=== PATIENT | female | born 1965 | race Caucasian/White ===

== ENCOUNTER 2016-10-07 16:58 | Emergency (ER) | payer MEDICARE ==
[~2016-10-07] VITALS: Ht 157.5 cm; Wt 99.8 kg
[2016-10-07 17:00] VITALS: BP 159/75; PULSE 86; RESP 18; TEMP 98.2; O2SAT 94
--- NOTE | 2016-10-07 17:35 | NUR ---
Jayna Lim BUTT TRIMMER performing MS at triage room
[2016-10-07] MEDS ORDERED: DEXAMETHASONE SOD PHOSPHATE 10 MG/ML VIAL IM ONE (17:45)
[2016-10-07] MEDS ORDERED: KETOROLAC TROMETHAMINE 60 MG/2 ML VIAL IM ONE (17:45)
--- NOTE | 2016-10-07 17:56 | NUR ---
Patient to ER for evaluation. Report given to Joi SOLER.
--- NOTE | 2016-10-07 18:02 | NUR ---
Patient to ER C/O severe 9/10 shooting pain lower back right side. Patient states that progresively got worse for the past 2 weeks. Denies trauma/injury. States she had sciatica before. AAOx4, unlabored breathing, no signs of acute distress.
[2016-10-07 18:22] LABS: BILIRUBIN,URINE NEGATIVE (NEGATIVE); BLOOD, URINE NEGATIVE (NEGATIVE); CLARITY/URINE CLEAR (CLEAR); COLOR,URINE YELLOW (YELLOW); GLUCOSE,URINE 3+ (NEGATIVE); KETONES,URINE NEGATIVE (NEGATIVE); LEUKOCYTE ESTERASE ,URINE NEGATIVE (NEGATIVE); NITRITE, URINE NEGATIVE (NEGATIVE); PH,URINE 6.5 (5.0-8.0); PROTEIN URINE NEGATIVE (NEGATIVE); UROBILINOGEN,URINE 0.2 (0.2-1.0)
[2016-10-07 18:59] VITALS: BP 128/71; PULSE 81; RESP 18; TEMP 98.1; O2SAT 96
--- NOTE | 2016-10-07 18:59 | NUR ---
Patient given written and verbal discharge instructions and verbalizes understanding. ER HEADER BOSS Carina discussed with patient the results and treatment provided. Patient in stable condition. ID arm band removed. Rx of motrin given. Patient educated on pain management and to follow up with PMD. Pain Scale 0/10. Opportunity for questions provided and answered.
[2016-10-07 19:18] LABS: BACTERIA,URINE RARE /HPF (None Seen); RBC,URINE 0-3 /HPF (0-3); WBC,URINE 0-3 /HPF (0-3)
[2016-10-07 19:19] LABS: MUCUS,URINE None Seen /LPF (None Seen)
== END 2016-10-07 18:59 | disposition home or self-care (01) ==
LOC: SED 16:58
DX: M54.17 Radiculopathy, lumbosacral region (principal); I25.2 Old myocardial infarction; E11.9 Type 2 diabetes mellitus without complications; I10 Essential (primary) hypertension; K21.9 Gastro-esophageal reflux disease without esophagitis; Z86.19 Personal history of other infectious and parasitic diseases
CPT/HCPCS: 81000; 81025; 96372; 99284; J1100; J1885

== ENCOUNTER 2017-01-22 07:34 | Inpatient (IN) | payer MEDICARE ==
[~2017-01-22] VITALS: Ht 154.9 cm; Wt 93.0 kg
[2017-01-22 07:34] VITALS: BP_SYST 140
[2017-01-22 08:05] LABS: BASOPHILS # (AUTO) 0.1 K/uL (0.0-0.2); BASOPHILS % (AUTO) 0.6 % (0.0-2.0); EOSINOPHILS # (AUTO) 0.2 K/uL (0.0-0.4); EOSINOPHILS % (AUTO) 2.4 % (0.0-4.0); HEMATOCRIT 40.2 % (36-48); HEMOGLOBIN 13.5 g/dL (12.0-16.0); LYMPHOCYTES # (AUTO) 2.4 K/uL (1.0-5.5); MEAN CORPUSCULAR HEMOGLOBIN 30 pg (27-31); MEAN CORPUSCULAR HGB CONC 34 % (32-36); MEAN CORPUSCULAR VOLUME 89 fL (79.0-98.0); MONOCYTES # (AUTO) 0.5 K/uL (0.0-1.0); MONOCYTES % (AUTO) 6.2 % (1.7-9.3); NEUTROPHILS # (AUTO) 5.4 K/uL (1.8-7.7); NEUTROPHILS % (AUTO) 62.8 % (40.0-70.0); PLATELET COUNT (AUTO) 265 K/uL (130-430); RED BLOOD CELL COUNT(AUTO) 4.51 MIL/uL (4.2-6.2); RED CELL DISTRIBUTION WIDTH 11.5 % (9.0-15.0); WHITE BLOOD COUNT (AUTO) 8.6 K/uL (4.8-10.8)
[2017-01-22 08:15] LABS: CREATININE 0.67 mg/dL (0.55-1.30); POTASSIUM 4.3 mmol/L (3.5-5.1)
[2017-01-22 08:19] LABS: INR 0.9 (0.8-1.2); PROTHROMBIN TIME 9.6 SECS (9.5-12.5)
[2017-01-22 08:21] LABS: ALBUMIN 3.5 g/dL (3.4-4.8); TOTAL BILIRUBIN 0.4 mg/dL (0.0-1.0); TOTAL PROTEIN, SERUM 7.6 g/dL (6.4-8.3)
[2017-01-22 08:39] LABS: BILIRUBIN,URINE NEGATIVE (NEGATIVE); CLARITY/URINE SL HAZY (CLEAR); COLOR,URINE YELLOW (YELLOW); GLUCOSE,URINE 3+ (NEGATIVE); KETONES,URINE NEGATIVE (NEGATIVE); LEUKOCYTE ESTERASE ,URINE TRACE (NEGATIVE); NITRITE, URINE NEGATIVE (NEGATIVE); PH,URINE 5.5 (5.0-8.0); PROTEIN URINE NEGATIVE (NEGATIVE); UROBILINOGEN,URINE 0.2 (0.2-1.0)
[2017-01-22 08:41] LABS: BLOOD, URINE TRACE (NEGATIVE)
[2017-01-22] MEDS ORDERED: METF1000 PO (09:06)
[2017-01-22] MEDS ORDERED: LISI-600 PO (09:06)
[2017-01-22 09:10] LABS: BACTERIA,URINE MODERATE /HPF (None Seen); WBC,URINE 20-50 /HPF (0-3)
[2017-01-22] MEDS ORDERED: cefTRIAXone 1 GM in D5W 50 ML IV ONE (09:15)
[2017-01-22] MEDS ORDERED: INSULIN ASPART 100 UNITS/ML, 10 ML VIAL SUBCUT ONE (09:15)
[2017-01-22] MEDS ORDERED: ASPIRIN 81 MG TAB.CHEW PO ONE (09:30)
[2017-01-22 10:17] VITALS: BP_SYST 134
[2017-01-22 12:00] VITALS: BP_SYST 137
[2017-01-22] MEDS: INSULIN ASPART 100 UNITS/ML, 10 ML VIAL (NovoLOG) SUBCUT PRN ×3 (12:10→20:42)
[2017-01-22 16:00] VITALS: BP_SYST 134
[2017-01-22] MEDS ORDERED: ACETAMINOPHEN 325 MG TABLET ONE (16:55)
[2017-01-22] MEDS: metFORMIN HCL 500 MG TABLET PO SCH (17:09)
[2017-01-22 19:50] VITALS: BP_SYST 129
[2017-01-22] MEDS: ACETAMINOPHEN 325 MG TABLET PO PRN (20:39)
[2017-01-22] MEDS: ACYCLOVIR 400 MG TABLET PO SCH (21:47)
[2017-01-22] MEDS ORDERED: ACYCLOVIR 400 MG TABLET PO SCH (22:00)
[2017-01-23] VITALS: BP_SYST 140
[2017-01-23 04:00] VITALS: BP_SYST 122
[2017-01-23] MEDS: INSULIN ASPART 100 UNITS/ML, 10 ML VIAL (NovoLOG) SUBCUT PRN (06:13)
[2017-01-23] MEDS: ACYCLOVIR 400 MG TABLET PO SCH (06:13)
[2017-01-23] MEDS: ACETAMINOPHEN 325 MG TABLET PO PRN (06:16)
[2017-01-23 07:17] LABS: BASOPHILS % (AUTO) 0.6 % (0.0-2.0); EOSINOPHILS # (AUTO) 0.2 K/uL (0.0-0.4); EOSINOPHILS % (AUTO) 2.7 % (0.0-4.0); HEMATOCRIT 39.4 % (36-48); HEMOGLOBIN 13.3 g/dL (12.0-16.0); LYMPHOCYTES # (AUTO) 2.6 K/uL (1.0-5.5); LYMPHOCYTES % (AUTO) 34.7 % (20.5-51.5); MEAN CORPUSCULAR HEMOGLOBIN 31 pg (27-31); MEAN CORPUSCULAR HGB CONC 34 % (32-36); MEAN CORPUSCULAR VOLUME 90 fL (79.0-98.0); MONOCYTES # (AUTO) 0.4 K/uL (0.0-1.0); MONOCYTES % (AUTO) 5.8 % (1.7-9.3); NEUTROPHILS # (AUTO) 4.4 K/uL (1.8-7.7); NEUTROPHILS % (AUTO) 56.2 % (40.0-70.0); PLATELET COUNT (AUTO) 258 K/uL (130-430); RED BLOOD CELL COUNT(AUTO) 4.37 MIL/uL (4.2-6.2); RED CELL DISTRIBUTION WIDTH 11.1 % (9.0-15.0); WHITE BLOOD COUNT (AUTO) 7.6 K/uL (4.8-10.8)
[2017-01-23 07:37] LABS: CALCIUM 8.9 mg/dL (8.4-11.0); CREATININE 0.61 mg/dL (0.55-1.30); POTASSIUM 4.1 mmol/L (3.5-5.1)
[2017-01-23 08:00] VITALS: BP_SYST 116
[2017-01-23] MEDS: metFORMIN HCL 500 MG TABLET PO SCH (08:33)
[2017-01-23] MEDS ORDERED: cefTRIAXone 1 GM in D5W 50 ML IV SCH (09:00)
[2017-01-23] MEDS ORDERED: ASPIRIN 81 MG TAB.CHEW PO SCH (09:00)
[2017-01-23] MEDS ORDERED: LISINOPRIL 20 MG TABLET PO SCH (09:00)
[2017-01-23] MEDS ORDERED: FAMOTIDINE 20 MG TABLET PO SCH (09:00)
[2017-01-23 12:01] VITALS: BP_SYST 116
== END 2017-01-23 12:25 | disposition home or self-care (01) | DRG 48 ==
LOC: SED 07:34 → STU 09:12
PROVIDERS: ADMIT Internal Medicine; ATTEND Internal Medicine
DX: G51.0 Bell's palsy (principal); E11.65 Type 2 diabetes mellitus with hyperglycemia; I10 Essential (primary) hypertension; N39.0 Urinary tract infection, site not specified; K21.9 Gastro-esophageal reflux disease without esophagitis; I25.2 Old myocardial infarction; Z79.899 Other long term (current) drug therapy; Z86.19 Personal history of other infectious and parasitic diseases
CPT/HCPCS: 36415; 70450-TC; 70551; 71010; 80048; 80053; 80061; 81000-TC; 82962; 83880; 84443-TC; 84484; 85025; 85610-TC; 85730-TC; 87040-TC; 87086; 87186-TC; 93005; 93880; 99285; J0696; J1815; J7060

== ENCOUNTER 2019-07-27 12:12 | Emergency (ER) | payer BC, MEDICARE ==
[~2019-07-27] VITALS: Ht 154.9 cm; Wt 98.9 kg
[~2019-07-27 12:12] MED LIST: LISI-600 PO; METF1000 PO
[2019-07-27 12:26] VITALS: BP_SYST 149
--- NOTE | 2019-07-27 12:29 | NUR ---
placed in bed 8
--- NOTE | 2019-07-27 12:35 | NUR ---
Patient arrived in the ED c/o headaches, vomiting, nausea and sensitivity to light that started yesterday - Patient is taking Advil; no relief per patient. Denied any fevers or chills. Patient is alert and oriented x4, respirations even and unlabored, speaking in full sentences, ambulating with a steady gait. VSS, pain level 8/10. Denied any chest pain or SOB. Son at bedside. Informed of wait time. Instructed to notify ED staff for any changes in condition or worsening of symptoms. Patient verbalized understanding.
--- NOTE | 2019-07-27 12:50 | NUR ---
ER Dr. Velasco at bedside examining patient.
--- NOTE | 2019-07-27 12:55 | NUR ---
Patient ambulated to the bathroom with a steady gait. Urine specimen collected.
[2019-07-27] MEDS ORDERED: PROCHLORPERAZINE EDISYLATE 10 MG/2 ML VIAL IVP ONE (13:00)
[2019-07-27] MEDS ORDERED: NACL 0.9% 1,000 ML IV ONE (13:00)
[2019-07-27] MEDS ORDERED: DIPHENHYDRAMINE INJ 50 MG/ML VIAL IVP ONE (13:00)
--- NOTE | 2019-07-27 13:12 | NUR ---
# 20 gauge angiocath placed to right hand. Use of asceptic technique. Opsite placed over site. Blood return noted. Flushed with 10 cc of normal saline. No evidence of infiltration noted. Patient tolerated well.
--- NOTE | 2019-07-27 13:15 | NUR ---
Administered Benadryl and Compazine IVP as ordered by Dr. Velasco. Patient tolerated the medications well.
--- NOTE | 2019-07-27 14:18 | NUR ---
Discontinued IV as ordered by Dr. Velasco. Catheter intact. Patient tolerated the procedure well.
--- NOTE | 2019-07-27 14:20 | NUR ---
Patient given written and verbal discharge instructions and verbalizes understanding. ER MD discussed with patient the results and treatment provided. Patient in stable condition. Discontinued IV as ordered by Dr. Velasco. ID arm band removed. Rx of Ibuprofen and Holiday given. Patient educated on pain management and to follow up with PMD. Pain Scale 0/10. Opportunity for questions provided and answered. Medication side effect fact sheet provided.
[2019-07-27 14:26] VITALS: BP_SYST 124
== END 2019-07-27 14:20 | disposition home or self-care (01) ==
LOC: SED 12:12
DX: R51 Headache (principal); R11.2 Nausea with vomiting, unspecified; E11.9 Type 2 diabetes mellitus without complications; K21.9 Gastro-esophageal reflux disease without esophagitis; I10 Essential (primary) hypertension
CPT/HCPCS: 81002; 96361; 96374; 96375; 99283; J0780; J1200; J7030

== ENCOUNTER 2024-02-10 20:56 | Emergency (ER) | payer BC ==
[~2024-02-10] VITALS: Ht 152.4 cm; Wt 100.2 kg
[~2024-02-10 20:56] MED LIST changes: -LISI-600 PO; +LISI20TA30 PO
[2024-02-10 21:35] VITALS: BP_SYST 151; PULSE 81; RESP 20; TEMP 97.4; O2SAT 97
[2024-02-10 21:53] LABS: BASOPHILS % (AUTO) 0.5 % (0.0-2.0); EOSINOPHILS # (AUTO) 0.3 K/uL (0.0-0.4); EOSINOPHILS % (AUTO) 3.2 % (0.0-4.0); HEMATOCRIT 36.6 % (36-48); HEMOGLOBIN 12.7 g/dL (12.0-16.0); LYMPHOCYTES % (AUTO) 32.3 % (20.5-51.5); MEAN CORPUSCULAR HEMOGLOBIN 31 pg (27-31); MEAN CORPUSCULAR HGB CONC 35 % (32-36); MEAN CORPUSCULAR VOLUME 91 fL (79.0-98.0); MONOCYTES # (AUTO) 0.7 K/uL (0.0-1.0); MONOCYTES % (AUTO) 7.7 % (1.7-9.3); NEUTROPHILS # (AUTO) 5.2 K/uL (1.8-7.7); NEUTROPHILS % (AUTO) 56.3 % (40.0-70.0); PLATELET COUNT (AUTO) 273 K/uL (130-430); RED BLOOD CELL COUNT(AUTO) 4.04 MIL/uL (4.2-6.2); RED CELL DISTRIBUTION WIDTH 12.8 % (9.0-15.0); WHITE BLOOD COUNT (AUTO) 9.3 K/uL (4.8-10.8)
[2024-02-10 22:16] LABS: INR 0.9 (0.8-1.2); PROTHROMBIN TIME 9.6 SECS (9.5-12.5)
[2024-02-10 22:18] LABS: BILIRUBIN,URINE NEGATIVE (NEGATIVE); BLOOD, URINE NEGATIVE (NEGATIVE); CLARITY/URINE CLEAR (CLEAR); COLOR,URINE YELLOW (YELLOW); GLUCOSE,URINE 3+ (NEGATIVE); KETONES,URINE TRACE (NEGATIVE); LEUKOCYTE ESTERASE ,URINE NEGATIVE (NEGATIVE); NITRITE, URINE NEGATIVE (NEGATIVE); PH,URINE 6.5 (5.0-8.0); PROTEIN URINE NEGATIVE (NEGATIVE); UROBILINOGEN,URINE 0.2 (0.2-1.0)
[2024-02-10 22:18] LABS: ALANINE AMINOTRANSFERASE 25 U/L (12-78); ALBUMIN 3.5 g/dL (3.4-4.8); ANION GAP 9 (5-15); ASPARTATE AMINOTRANSFERASE 10 U/L (10-37); CARBON DIOXIDE 28 mmol/L (23-29); CHLORIDE 101 mmol/L (98-107); CREATININE 0.91 mg/dL (0.55-1.30); GFR AFRICAN AMERICAN 82 mL/min (>90); GLUCOSE 329 mg/dL (74-106); POTASSIUM 3.8 mmol/L (3.5-5.1); SODIUM SERUM 138 mmol/L (136-145); TOTAL BILIRUBIN 0.2 mg/dL (0.0-1.0); TOTAL PROTEIN, SERUM 7.1 g/dL (6.4-8.3); UREA NITROGEN, BLOOD 13 mg/dL (8-21)
[2024-02-10 22:19] LABS: GFR NON AFRICAN-AMERICAN 68 mL/min (>90)
[2024-02-10 22:28] LABS: AMYLASE 45 U/L (0-100); BILIRUBIN,DIRECT 0.1 mg/dL (0.0-0.3); LIPASE 25 U/L (16-77)
[2024-02-10] MEDS: ONDANSETRON HCL 4 MG/2 ML VIAL IVP ONE (22:47)
[2024-02-10] MEDS: MORPHINE 4 MG INJ. 4 MG/ML VIAL IVP ONE (22:48)
[2024-02-11] MEDS ORDERED: ACET-2634 PO (00:13)
[2024-02-11] MEDS ORDERED: DICY10SO PO (00:14)
[2024-02-11 00:52] VITALS: BP_SYST 150; PULSE 76; RESP 20; TEMP 97.4; O2SAT 97
== END 2024-02-11 00:52 | disposition home or self-care (01) ==
LOC: SED 20:56
DX: R10.32 Left lower quadrant pain (principal); R10.9 Unspecified abdominal pain; K42.9 Umbilical hernia without obstruction or gangrene; E11.65 Type 2 diabetes mellitus with hyperglycemia; I10 Essential (primary) hypertension; I25.2 Old myocardial infarction; K21.9 Gastro-esophageal reflux disease without esophagitis; Z79.899 Other long term (current) drug therapy; Z79.2 Long term (current) use of antibiotics
CPT/HCPCS: 99285; 74176; 96374; 96375; 80076; 80048; 81001; 82150; 83690; 85025; 85610; 85730; 84484; 36415; 83605; 82397; J2405; J2270; 81003

== ENCOUNTER 2024-02-13 16:30 | Emergency (ER) | payer BC ==
[~2024-02-13] VITALS: Ht 152.4 cm; Wt 100.7 kg
[~2024-02-13 16:30] MED LIST changes: +ACET-2634 PO; +DICY10SO PO
[2024-02-13 16:42] VITALS: BP_SYST 154; PULSE 80; RESP 16; TEMP 97.7; O2SAT 97
[2024-02-13 17:12] LABS: BASOPHILS # (AUTO) 0.1 K/uL (0.0-0.2); BASOPHILS % (AUTO) 0.7 % (0.0-2.0); EOSINOPHILS # (AUTO) 0.2 K/uL (0.0-0.4); EOSINOPHILS % (AUTO) 2.4 % (0.0-4.0); HEMATOCRIT 37.1 % (36-48); HEMOGLOBIN 12.8 g/dL (12.0-16.0); LYMPHOCYTES # (AUTO) 2.7 K/uL (1.0-5.5); LYMPHOCYTES % (AUTO) 29.1 % (20.5-51.5); MEAN CORPUSCULAR HEMOGLOBIN 31 pg (27-31); MEAN CORPUSCULAR HGB CONC 34 % (32-36); MEAN CORPUSCULAR VOLUME 90 fL (79.0-98.0); MONOCYTES # (AUTO) 0.6 K/uL (0.0-1.0); MONOCYTES % (AUTO) 6.2 % (1.7-9.3); NEUTROPHILS # (AUTO) 5.7 K/uL (1.8-7.7); NEUTROPHILS % (AUTO) 61.6 % (40.0-70.0); PLATELET COUNT (AUTO) 287 K/uL (130-430); RED BLOOD CELL COUNT(AUTO) 4.11 MIL/uL (4.2-6.2); RED CELL DISTRIBUTION WIDTH 13.1 % (9.0-15.0); WHITE BLOOD COUNT (AUTO) 9.3 K/uL (4.8-10.8)
[2024-02-13] MEDS: ONDANSETRON HCL 4 MG/2 ML VIAL IVP ONE (17:23)
[2024-02-13] MEDS: MORPHINE 4 MG INJ. 4 MG/ML VIAL IM ONE (17:24)
[2024-02-13 17:27] LABS: ALBUMIN 3.5 g/dL (3.4-4.8); BILIRUBIN,DIRECT 0.1 mg/dL (0.0-0.3); CALCIUM 9.1 mg/dL (8.4-11.0); CREATININE 0.7 mg/dL (0.55-1.30); POTASSIUM 4.1 mmol/L (3.5-5.1); TOTAL BILIRUBIN 0.2 mg/dL (0.0-1.0); TOTAL PROTEIN, SERUM 7.1 g/dL (6.4-8.3)
[2024-02-13] MEDS ORDERED: HYDR-3917 PO (20:55)
[2024-02-13 21:31] VITALS: BP_SYST 142; PULSE 76; RESP 20; TEMP 97.7; O2SAT 91
== END 2024-02-13 21:31 | disposition home or self-care (01) ==
LOC: SED 16:30
DX: R10.9 Unspecified abdominal pain (principal); M62.08 Separation of muscle (nontraumatic), other site; I25.2 Old myocardial infarction; E11.9 Type 2 diabetes mellitus without complications; K21.9 Gastro-esophageal reflux disease without esophagitis; I10 Essential (primary) hypertension; E78.00 Pure hypercholesterolemia, unspecified; Z79.899 Other long term (current) drug therapy; Z79.2 Long term (current) use of antibiotics
CPT/HCPCS: 99285; 74177; 96374; 96375; 80076; 80048; 83690; 85025; 84484; 36415; J2405; J2270